=== PATIENT | female | born 1965 | race Caucasian/White ===

== ENCOUNTER → 2018-03-07 | Day surgery (SDC) | END | disposition home or self-care (01) | DX: N32.81 Overactive bladder (principal); N32.89 Other specified disorders of bladder; K59.4 Anal spasm; M62.9 Disorder of muscle, unspecified; R94.31 Abnormal electrocardiogram [ECG] [EKG] | CPT/HCPCS: 00300; 64561; 76000; 85025; 93005; C1778; J0690; J2250; J2765; J3010; J7120; J8501 ==

== ENCOUNTER → 2018-03-14 | Day surgery (SDC) | payer MEDICARE ==
[~2018-03-14] VITALS: Ht 167.6 cm; Wt 84.4 kg
[~2018-03-14] MED LIST: ACETAMINOPHEN 1000 MG/100 ML 100 ML IV ONE; ALBU6.7H INH; ALPR0.5T3 PO; ASPI1TAB93 PO; CHLORHEXIDINE GLUCONATE 2 % 1 PACK (2 CLOTHS) TOPICAL PRN; CITA20TA4 PO; DEXAMETHASONE SOD PHOS 4 MG/ML VIAL IV ONE; ESTR1TAB PO; FENT25DI T-DERMAL; IBUP200C PO; INSULIN HUMAN REGULAR 1,000 UNITS/10 ML VIAL SQ PRN; KETAMINE HCL 50 MG/5 ML SYRINGE ONE; KETOROLAC TROMETHAMINE 30 MG/ML (IVP) VIAL IV PUSH ONE; LACTATED RINGER'S 1000 ML IV PRN; LEVO75TA3 PO; LIDO2GEL11 TOPICAL; LIDOCAINE 1%/EPINEPHrine 1:100,000 SOLN 30 ML VIAL ONE; LIDOCAINE HCL 1% PF 5 ML SYRINGE OTHER ONE; METOPROLOL TARTRATE 25 MG TAB PO PRN; MIDAZOLAM HCL 2 MG/2 ML VIAL ONE; MONT10TA4 PO; ONDANSETRON HCL 4 MG/2 ML VIAL IV ONE; OXYB5TAB8 PO; OXYC1TAB36 PO; POVIDONE IODINE 5% (ANTISEPSIS KIT) 4 APPLICATIONS EACH NARE PRN; PROPOFOL 200 MG/20 ML AMP IV ONE; SCOPOLAMINE 1.5 MG PATCH ONE; SODIUM CHLORID 0.9% 500 ML IV PRN; VITA100021 SL; ceFAZolin 1,000 MG/NS 100 ML IV SCH
[2018-03-14 14:23] VITALS: TEMP 97.4
[2018-03-14 15:01] VITALS: BP 114/73; PULSE 71; RESP 16; O2SAT 96
--- NOTE | 2018-03-14 15:12 | MP ---
cc: Carlos Isaac DO DATE OF OPERATION: 03/14/2018 DATE OF PROCEDURE: 03/14/2018 PREOPERATIVE DIAGNOSIS: Overactive bladder. POSTOPERATIVE DIAGNOSIS: Overactive bladder. PROCEDURE PERFORMED: Full InterStim implant using the VerifEye system. ANESTHESIA: MAC with local. SURGEON: Carlos Isaac DO ELIGIBILITY AND OCCUPANCY INTERVIEWER: None. RESIDENT: None. ESTIMATED BLOOD LOSS: 5 mL. INDICATIONS FOR PROCEDURE: This is a pleasant 52-year-old female with symptoms of overactive bladder, who underwent InterStim stage I with good results and is here to undergo a full implant. Risks and benefits were discussed preoperatively and the patient was willing to proceed. DESCRIPTION OF PROCEDURE: The patient was properly identified and placed in the prone position per the OR protocol. MAC anesthesia was administered. Pillows were placed in the lower abdomen to flatten the sacrum and under the shins to allow the toes to dangle freely. The ground pad was placed in the bottom of the patient's foot, and the proximal ends of the test stimulation cable were connected to the ground pad and to the external neurostimulator. The patient was prepped and draped in the usual sterile fashion, and she received preprocedure antibiotics. The C-arm was moved into the AP position to provide fluoroscopic guidance to the sacrum. The medial edges of the foramen were identified and marked. C-arm was then moved into the lateral position to identify the S3 foramen. Once the needle entry point was determined, local injection with 1% lidocaine was administered. A 3.5 inch foramen needle was then placed into the superior, medial aspect of the S3 foramen to an appropriate needle with visualization using fluoroscopy. Proper S3 needle location was also confirmed by direct observation of lifting the perineum and bellowing with plantarflexion of the great toe utilizing the test stimulation cable, the external neurostimulator and the VerifEye control. The foramen needle stylet was removed and a directional guide was placed through the needle using markers on the guide to ensure appropriate depth. The foramen needle was removed by sliding over the directional guide. A small incision was made peripherally to the directional guide, through the skin. The lead introducer with dilator was placed over the directional guide and utilizing fluoroscopy guidance, the lead introducer was advanced until the radiopaque markers were long-term through the foramen. The dilator was removed along with the directional guide. Using fluoroscopy, the tined lead with a curved stylet was placed through the introducer until electrodes 2 and 3 straddled the anterior surface of the sacrum. All 4 electrodes were tested, observing david and plantar flexion of the great toe utilizing the test stimulation cable, the external neurostimulator and VerifEye control. After satisfactory lead positioning was confirmed, the introducer was retracted over the lead under continuous fluoroscopy, deploying the tines in the presacral tissue. Retesting of all 4 electrodes confirmed appropriate responses was completed. The anterior nerve stimulator pocket site was identified below the iliac crest lateral to the sacrum. Local anesthesia was administered and incision made in the subcutaneous tissue. Blunt dissection was used to create a pocket with hemostasis achieved. A tunneling tool with sheath was placed from the lead exit site subcutaneously into the incised pocket site. The tunneling tool was removed, and the lead was fed through the sheath, exiting the pocket site. The sheath was removed. The lead was cleaned and dried. The lead was inserted into the header of the InterStim neurostimulator and the blue tip was visualized at the distal window. The single set screw was tightened using the torque wrench until an audible click was heard. The neurostimulator was placed into the pocket with the etched identification side placed upwards and any excessive lead was placed around the neurostimulator. The clinical sap abap programmer telemetry head, covered with a sterile sleeve, was placed over the implanted neurostimulator to ensure proper lead connection and that parameters were within normal range. Impedances were confirmed to be within normal limits, greater than 50 and less than 4000 ohms. The wound was irrigated with antibiotic solution and sterile water and closed with a 4-0 Vicryl suture and then a 4-0 Monocryl was used as a subcuticular closure of the skin. Counts were correct. Adhesive strips and gauze were placed over the incision and covered with a transparent dressing. EBL was 5 mL. The patient was returned to recovery room in stable condition. Using the clinical sap abap programmer, the InterStim transducer was programmed. The patient was provided utilization instructions with the sap abap programmer prior to discharge. CPT CODES FOR THIS PROCEDURE: Include 04521, 32107, 15522-20, 04887, 69006. Carlos Isaac DO SWT/DAKOTAH , 02:35 PM , 03:11 PM
--- NOTE | 2018-03-14 16:14 | RADRPT ---
EXAM DATE: 03/14/2018 3:26 PM EDT AGE/SEX: 52 years / Female INDICATIONS: Interstim placement. CLINICAL DATA: This is the patient's initial encounter. Patient reports that signs and symptoms have been present for 1 day and indicates a pain score of Nonresponsive. MEDICAL/SURGICAL HISTORY: Non-responsive. Non-responsive. COMPARISON: No prior [facility] exams available for comparison. FINDINGS: 2 fluoroscopic images of the sacrum demonstrate a stimulator wire projecting to the distal sacrum. Vi sualized osseous structures are intact. Joint spaces are maintained. CONCLUSION: 1. Sacral neurostimulator placement, as above. Electronically signed by: Reinaldo Delacruz MD 03/14/2018 4:13 PM EDT
== END | disposition home or self-care (01) ==
LOC: HSDC 09:10
PROVIDERS: ATTEND Urology
DX: N32.81 Overactive bladder (principal); N39.41 Urge incontinence
CPT/HCPCS: 00400; 00630; 64581; 64590; 72220; 76000; C1713; C1767; C1778; C1787; J0131; J0690; J1100; J1885; J2250; J2405; J3010; J7120